=== PATIENT | male | born 2000 | race Caucasian/White ===

== ENCOUNTER → 2021-11-26 | Outpatient (CLI) | payer OTHER ==
[~2021-11-26] MED LIST: CLEOCIN HCL150 MG PO; LODINE CAP 300300 MG PO; NORCO 10-325 T1 EACH PO
== END ==
LOC: KOH-I 09:23
DX: M54.50 Low back pain, unspecified (principal); G89.29 Other chronic pain; M51.36 Other intervertebral disc degeneration, lumbar region; M47.816 Spondylosis without myelopathy or radiculopathy, lumbar region
CPT/HCPCS: 72148